=== PATIENT | male | born 1955 | race Caucasian/White ===

== ENCOUNTER 2018-12-17 20:16 | Inpatient (IN) | payer MEDICAID ==
[~2018-12-17] VITALS: Ht 175.3 cm; Wt 73.0 kg
[2018-12-17] MEDS ORDERED: FLOMAX (20:26)
[2018-12-17] MEDS ORDERED: BP MED (20:26)
[2018-12-17] MEDS ORDERED: CHOLESTEROL MED (20:26)
[2018-12-17 20:57] LABS: BASOPHILS 0.1 % (0-2); EOSINOPHILS 1.3 % (0-7); HEMATOCRIT 39.7 % (42.0-54.0); HEMOGLOBIN 13.7 g/dL (13.5-17.5); IMMATURE GRANULOCYTES 0.2 % (0-5); LYMPHOCYTES 14.9 % (15-50); MCH 29.5 pg (26.0-34.0); MCHC 34.5 g/dL (31.0-37.0); MCV 85.6 fL (80.0-100.0); MEAN PLATELET VOLUME 9.7 fL (7.4-10.4); MONOCYTES 7.8 % (2-11); NEUTROPHILS 75.7 % (40-80); PLATELET COUNT 172 10x3/uL (130-400); RBC 4.64 10x6/uL (4.20-6.10); RDW 13.5 % (11.5-14.5); WBC 8.7 10x3/uL (4.8-10.8)
[2018-12-17 21:18] LABS: ALKALINE PHOSPHATASE 78 U/L (46-116); ALT (SGPT) 24 U/L (10-68); BILIRUBIN - TOTAL 0.57 mg/dL (0.2-1.3); CALC OSMOLALITY 302 mosm/kg (275-300); CALCIUM 7.8 mg/dL (8.5-10.1); CARBON DIOXIDE 14.7 mmol/L (21.0-32.0); CHLORIDE - SERUM 110 mmol/L (98-107); CREATININE - SERUM 3.8 mg/dL (0.6-1.3); GLUCOSE 85 mg/dL (74-106); PROTEIN - SERUM 7.8 g/dL (6.4-8.2); SODIUM 143 mmol/L (136-145); UREA NITROGEN 66 mg/dL (7-18); eGFR NON AFRICAN AMERICAN 17 mL/min (90-120)
[2018-12-17 21:30] VITALS: BP 137/79
[2018-12-17 21:36] LABS: LIPASE 82 U/L (73-393); MAGNESIUM - SERUM 2.6 mg/dL (1.8-2.4); THYROID STIMULATING HORMONE 1.29 uIU/mL (0.36-3.74)
[2018-12-17 21:39] LABS: CREATINE KINASE 969 UL (21-232); TROPONIN-I < 0.017 ng/mL (0.000-0.060)
[2018-12-17 21:39] LABS: APPEARANCE SL CLDY (CLEAR); BILIRUBIN NEGATIVE (NEGATIVE); COLOR YELLOW (YELLOW); GLUCOSE NEGATIVE (NEGATIVE); KETONE SMALL mg/dL (NEGATIVE); NITRITE NEGATIVE (NEGATIVE); PROTEIN 2+ mg/dL (NEGATIVE); UROBILINOGEN NORMAL (NORMAL)
[2018-12-17 21:40] LABS: CKMB 16.6 U/L (0.0-3.6)
[2018-12-17 21:41] LABS: RED CELLS - URINE 25-50 /hpf (0-5)
[2018-12-17 21:42] LABS: BACTERIA FEW /hpf (NONE SEEN)
[2018-12-17 21:43] LABS: YEAST <1+ /hpf (NONE SEEN)
[2018-12-17 21:47] LABS: UDS - AMPHET POSITIVE QUAL (NEGATIVE); UDS - BARB NEGATIVE QUAL (NEGATIVE); UDS - BENZO NEGATIVE QUAL (NEGATIVE); UDS - COCAINE NEGATIVE QUAL (NEGATIVE); UDS - OPIATE NEGATIVE QUAL (NEGATIVE); UDS - PCP NEGATIVE QUAL (NEGATIVE); UDS - THC NEGATIVE QUAL (NEGATIVE)
--- NOTE | 2018-12-17 23:31 | NUR ---
PT ARRIVED VIA STRETCHER FROM ER. PT TWITCHING. STATES HE IS LEAVING IN THE MORNING. PT AGREED TO STAY THE NIGHT FOR IV FLUIDS, A BED AND AC. IV TO LAC WITH BANANA BAG AT 125CC/HR AND NS BOLUS. IV TO RAC SL. BED ALRM ON.
[2018-12-17 23:40] VITALS: BP 133/78; BMI 23.8
--- NOTE | 2018-12-18 00:23 | NUR ---
ADMISSION COMPLETED. PT EKUK. SPEECH SLURRED AT TIMES. PT ANSWERED QUESTIONS APPROPRIATELY. UNABLE TO STAY STILL. IV TO TONO EIAUSTIN BANANA BAG AT 125CC/HR. IV TO ERIKA SL. LUNGS CTA. NUMEROUS BUG BITES BOTED TO BODY. PT DOESN'T REMEMBER WHEN HE TOOK HIS MEDS LAST. SR UP X2, CALL LIGHT WITHIN REACH, DOOR OPEN AND BED ALARM ON.
[2018-12-18] MEDS ORDERED: TOPROL XL100 MG PO (00:27)
[2018-12-18] MEDS ORDERED: PRINIVIL20 MG PO (00:27)
[2018-12-18] MEDS ORDERED: ZOCOR20 MG PO (00:27)
[2018-12-18] MEDS ORDERED: FLOMAX0.4 MG PO (00:28)
--- NOTE | 2018-12-18 02:30 | NUR ---
PT PULLED LAC IV OUT. BLOOD NOTED TO PT AND BED. PRESSURE HELD TO AC SITE UNTIL BLEEDING STOPPED. PT CLEANED, BED LINENS CHANGED. IV RESTARTED TO RAC BANANA BAG AT 125CC/HR. PT TWITCHING IN BED. ATIVAN 1MG SIVP GIVEN. SR UP X2, CALL LIGHT WITHIN REACH, DOOR OPEN AND BED ALARM ON.
--- NOTE | 2018-12-18 03:40 | NUR ---
PT RESTING WITH EYES CLOSED. RESP EVEN AND REGULAR. LIGHT TWITCHING NOTED WHILE SLEEPING. SR UP X2, CALL LIGHT WITHIN REACH, DOOR OPEN AND BED ALARM ON.
--- NOTE | 2018-12-18 06:09 | NUR ---
ATIVAN 1MG SIVP GIVEN AT 0542 FOR AGITATION. WILL CONTINUE TO MONITOR.
--- NOTE | 2018-12-18 06:41 | NUR ---
PT PULLED IV TO RAC OUT WITH CATHETER INTACT. INCONTINENT OF URINE. PT CLEANED, BED LINENS CHANGED. NEW IV STARTED #20 TO UPPER R ARM WITH ATTEMPT X2. PT UNCOOPERATIVE DURING PROCEDURE. NS AT 125CC/HR RESTARTED. SR UP X2, CALL LIGHT WITHIN REACH, DOOR OPEN AND BED ALARM ON.
[2018-12-18 06:46] LABS: BASOPHILS 0.1 % (0-2); EOSINOPHILS 0.9 % (0-7); HEMOGLOBIN 12.3 g/dL (13.5-17.5); IMMATURE GRANULOCYTES 0.1 % (0-5); MCH 29.4 pg (26.0-34.0); MCHC 34.2 g/dL (31.0-37.0); MCV 86.1 fL (80.0-100.0); MEAN PLATELET VOLUME 10.1 fL (7.4-10.4); MONOCYTES 11.3 % (2-11); NEUTROPHILS 61.6 % (40-80); PLATELET COUNT 169 10x3/uL (130-400); RBC 4.18 10x6/uL (4.20-6.10); RDW 13.7 % (11.5-14.5)
[2018-12-18 07:09] LABS: ALBUMIN 3.4 g/dL (3.4-5.0); ALKALINE PHOSPHATASE 67 U/L (46-116); ALT (SGPT) 26 U/L (10-68); BILIRUBIN - TOTAL 0.69 mg/dL (0.2-1.3); CALC OSMOLALITY 301 mosm/kg (275-300); CALCIUM 7.6 mg/dL (8.5-10.1); CARBON DIOXIDE 12.8 mmol/L (21.0-32.0); CHLORIDE - SERUM 114 mmol/L (98-107); POTASSIUM - SERUM 4.2 mmol/L (3.5-5.1); PROTEIN - SERUM 6.8 g/dL (6.4-8.2); SODIUM 145 mmol/L (136-145); UREA NITROGEN 55 mg/dL (7-18)
[2018-12-18 07:10] LABS: CREATINE KINASE 924 UL (21-232); CREATININE - SERUM 2.5 mg/dL (0.6-1.3); eGFR NON AFRICAN AMERICAN 28 mL/min (90-120)
[2018-12-18 07:11] LABS: GLUCOSE 69 mg/dL (74-106)
--- NOTE | 2018-12-18 07:15 | NUR ---
REPORT RECEIVED. WILL CONTINUE WITH POC. PT CURRENTLY LYING SEMI FOWLERS. CALL LIGHT W/I REACH. PT IS CURRENTLY RESTING. RR EVEN AND UNLABORED ON RA. NS INFUSING @125ML/HR VIA R.UPPER ARM. PT IS CONFUSED TO SITUATION AND CONTINUES TO TRY AND GET OUT OF BED. FALL PRECAUTIONS IN PLACE.WILL CTM.
[2018-12-18 07:33] LABS: CKMB 18.5 U/L (0.0-3.6)
[2018-12-18 08:55] VITALS: BP 132/51
--- NOTE | 2018-12-18 09:26 | NUR ---
PT PULLED PREVIOUS PIV OUT WITH CATHETER TIP FULLY INTACT. STARTED PIV TO THE LEFT UPPER ARM 22GA X1 ATTEMPT. FLUSHED WITH 10ML NS TO CONFIRM PATENCY. PT TOLERATED WELL. PT IS CONFUSED TO SITUATION AND CONTINUES TO SHAKE AND DRASTICALLY MOVE HIS ARMS. PRN ATIVAN ADMINISTERED. BS THIS AM WAS 69. PT DRANK ONE FULL GLASS OF ORANGE JUICE AND PRN PO GLUCOSE WAS ADMINISTERED. WILL CTM. NS INFUSING @125ML/HR.
[2018-12-18 09:59] VITALS: Ht 175.3 cm; Wt 73.0 kg
--- NOTE | 2018-12-18 10:36 | NUR ---
PT IS CONFUSED AND COMBATIVE AND CONTINUES TO TRY AND GET OUT OF BED. ATTEMPTED TO REORIENT PATIENT AND SAT PT BACK IN BED. BED ALARM TURNED ON. WILL CTM.
--- NOTE | 2018-12-18 13:45 | NUR ---
I have reviewed this patient and I concur with the Shift Assessment completed by the Licensed Practical Nurse today this shift.
--- NOTE | 2018-12-18 14:13 | NUR ---
PT RECEIVED BATH AND NEW LINENS APPLIED. PT CURRENTLY SITTING UP IN CHAIR RESTING. CALL LIGHT W/I REACH. RR EVEN AND UNLABORED ON RA. NS INFUSING @125ML/HR VIA L.UPPER ARM PIV. NO S/S OF DISTRESS NOTED. WILL CTM. PT IS NO LONGER COMBATIVE AND SEEMS TO APPEAR CALM AND COOPERATIVE AT THIS TIME.
--- NOTE | 2018-12-18 18:12 | NUR ---
PT PULLED PREVIOUS PIV OUT IN THE LEFT ARM. INITIATED NEW PIV TO THE RIGHT UPPER ARM 22GA X1 ATTEMPT. PT TOLERATED WELL. FLUSHED WITH 10ML TO CONFIRM PATENCY. BANANA BAG INFUSING @125ML/HR. FALL PRECAUTIONS IN PLACE. CALL LIGHT W/I REACH. SIDE RAIL UP X3. BED ALARM ON. WILL CTM.
[2018-12-18 18:15] VITALS: BP 148/86
[2018-12-18 20:00] VITALS: BP 153/71
--- NOTE | 2018-12-18 21:17 | NUR ---
FOUND PT UP IN OOB WHEN ALARM WENT OFF. PT STATES " I AM TRYING TO USE THE BATHROOM." PROVIDED PT WITH A URINAL. PT PUT OUT 100CC'S. HELPED PT BACK IN BED. BED ALARM ON. PT DENIES ANY FURTHER NEEDS AT THIS TIME. WILL CPOC.
[2018-12-19] VITALS: BP 148/70
[2018-12-19 04:00] VITALS: BP 133/78
[2018-12-19 05:40] LABS: ALBUMIN 3.3 g/dL (3.4-5.0); ANION GAP 19.3 mmol/L (8-16); BILIRUBIN - TOTAL 0.64 mg/dL (0.2-1.3); CALCIUM 7.8 mg/dL (8.5-10.1); CARBON DIOXIDE 15.1 mmol/L (21.0-32.0); MAGNESIUM - SERUM 2.8 mg/dL (1.8-2.4); PHOSPHOROUS 2.9 mg/dL (2.5-4.9); POTASSIUM - SERUM 4.4 mmol/L (3.5-5.1); PROTEIN - SERUM 6.3 g/dL (6.4-8.2)
[2018-12-19 05:51] LABS: CREATININE - SERUM 1.4 mg/dL (0.6-1.3)
--- NOTE | 2018-12-19 06:45 | NUR ---
PT WOKE UP CONFUSED AND AGGITATED AND TRYING TO GET OOB. PT THREW A PUNCH AT ME. STATES HE WANTS HIS URINAL. PROVIDED PT WITH URINAL. PT PUT OUT 70CCS. PT ALSO PULLED OUT HIS IV. NO S/S OF BLEEDING ON SITE. APPLIED 2X2 GAUZE AND TAPED. RESTARTED A NEW IV ON PT'S LEFT WRIST X1 STICK. PT TOLERATE WELL. IV PRN 1MG ATIVAN GIVEN AT THIS TIME. PT DENIES ANY NEED FOR PAIN. WILL CTM. BED ALARM ON.
--- NOTE | 2018-12-19 07:10 | NUR ---
REPORT RECEIVED FROM SOLDERER AND PATIENT CARE ASSUMED. PATIENT LAYING IN BED ON RT SIDE WITH EYES CLOSED AND BREATHING NORMALLY. PATIENT AROUSES TO VOICE.STILL APHASIC. WILL CONTINUE WITH PLAN OF CARE. SIDE RAILS UP X 2 BED IN LOW POSITION AND CALL LIGHT IN REACH.
[2018-12-19 08:52] VITALS: BP 121/67
--- NOTE | 2018-12-19 10:00 | NUR ---
PATIENT HAD COMPLETE BATH AND LINEN CHANGE. UP TO BS CHAIR. PATIENT IS CALM AND AGREEABLE. WILL CONTINUE TO MONITOR. CHAIR ALARM IN PLACE AND WORKING. CALL LIGHT IN REACH.
--- NOTE | 2018-12-19 13:00 | NUR ---
PATIENT BACK TO BED. PATIENT IS CALM AND LETHARGIC. PATIENT IS STABLE AND VSS. WILL CONTINUE TO MONITOR. SR UP X 2 BED IN LOW POSITION AND CALL LIGHT IN REACH.
[2018-12-19 13:56] VITALS: BP 149/86
[2018-12-19 17:39] VITALS: BP 150/93
--- NOTE | 2018-12-19 19:20 | NUR ---
PT COMING BACK FROM BATHROOM. FAMILY ASSISTING. DINNER TRAY NOTED AT BED SIDE. O% EATEN. ASKED PT IF HE WAS HUNGRY AND PT YELLED NO IM NOT EATING. WILL KEEP TRAY FOR IF PT WANTS TO HEAT IT UP. PT SITTING ON SIDE OF BED. DOESNT WANT TO SPEAK TO NURSE AT THIS TIME. NAME AND DATE PLACED ON BOARD. PT BED LOW AND CALL LIGHT IN REACH. WILL CPOC
[2018-12-19 20:00] VITALS: BP 174/90
--- NOTE | 2018-12-19 23:43 | NUR ---
NEW IV PLACED RIGHT AC 20G ONE ATTEMPT. FLUIDS STARTED BACK ORDERED. PT LAYING ON LEFT SIDE. NO S/S OF DISTRESS. WILL CPOC
--- NOTE | 2018-12-20 00:59 | NUR ---
PT FAMILY WENT HOME. PT BED ALARM ON AND ACTIVE. D5 1/2 NS INFUSING AT 100 ORDERED. WILL CPOC
--- NOTE | 2018-12-20 01:57 | NUR ---
PT BED ALARM ALERTED NURSE. PT ASSISTED TO RESTROOM. PT COMPLIANT. NO S/S OF DISTRESS. BACK TO BED AND PLACED ALARM BACK ON. WILL CPOC
[2018-12-20 04:00] VITALS: BP 156/89
[2018-12-20 05:33] LABS: ALBUMIN 2.8 g/dL (3.4-5.0); ALKALINE PHOSPHATASE 55 U/L (46-116); ALT (SGPT) 24 U/L (10-68); BILIRUBIN - TOTAL 0.45 mg/dL (0.2-1.3); CALCIUM 7.7 mg/dL (8.5-10.1); CHLORIDE - SERUM 110 mmol/L (98-107); CREATINE KINASE 196 UL (21-232); SODIUM 141 mmol/L (136-145)
[2018-12-20 05:35] LABS: CALC OSMOLALITY 283 mosm/kg (275-300); GLUCOSE 147 mg/dL (74-106); MAGNESIUM - SERUM 1.6 mg/dL (1.8-2.4); PHOSPHOROUS 1.6 mg/dL (2.5-4.9); UREA NITROGEN 13 mg/dL (7-18); eGFR NON AFRICAN AMERICAN 80 mL/min (90-120)
--- NOTE | 2018-12-20 06:02 | NUR ---
MORNING PROTONIX GIVEN. LOW POTASSIUM, PHOS AND MAG TREATED PER ELECT. PROTOCOL. APPLE SAUCE GIVEN TO PT FOR A SNACK. PT HAS NO S/S OF DISTRESS. WILL CPOC
--- NOTE | 2018-12-20 06:51 | NUR ---
BLADDER SCANED PT DUE TO HISTORY OF BPH NO URINE ON BLADDER SCAN POST VOID
[2018-12-20 08:40] VITALS: BP 141/83
--- NOTE | 2018-12-20 09:09 | NUR ---
PATIENT IS RESTING QUIETLY IN BED AT THIS TIME. DENIES ANY NEEDS.
--- NOTE | 2018-12-20 09:42 | NUR ---
Nutrition follow-up: Attemped to visit pt during breakfast; pt would not speak to me and just turned his head. Diet: Regular PO Intake ~60% average of last 3 meals No BM charted Labs reviewed RDN following.
[2018-12-20 12:27] VITALS: BP 161/97
--- NOTE | 2018-12-20 13:09 | NUR ---
PATIENT IS BEING DISCHARGED. PATIENT EDUCATION COMPLETED AND PAPERS SIGNED. PATIENT IV REMOVED FROM LEFT AC WITH CATHETER INTACT. PATIENT TOLERATED. HE IS GOING HOME WITH FAMILY MEMBER, ALL PATIENT BELONGINGS HAVE BEEN REMOVED FROM THE ROOM. HE IS LEAVING THE FLOOR BY WHEELCHAIR.
--- NOTE | 2018-12-20 14:43 | MORECARE ---
CASE MANAGEMENT DISCHARGE SUMMARY PATIENT: DAYTON SCHROEDER UNIT: [id number] ADM DATE: 12/18/18 AGE: 63 : 57 SEX: M ROOM/BED: D.2104 AUTHOR: CAMILLE LIMA PHYSICIAN: REFERRING PHYSICIAN: OG BOWENS MD DATE OF SERVICE: 12/20/18 Discharge Plan Patient Name: DAYTON SCHROEDER [facility] [facility] 1955 Planned Disposition: Home Anticipated Discharge Date: 12/20/18 Discharge Date: 12/20/2018 Expected LOS: 2 Initial Reviewer: [email or web address] Initial Review Date: 12/20/2018 Generated: 12/20/18 3:42 pm DCPIA - Discharge Planning Initial Assessment Updated by [email or web address]: Ziyad Estrada on 12/20/18 2:36 pm * Is the patient Alert and Oriented? Yes * How many steps to enter\exit or inside your home? * PCP DR. MOTT IN [place] * Pharmacy [facility] IN [place] * Preadmission Environment Home Alone * ADLs Independent * Equipment None * Other Equipment NO MEDICAL EQUIPMENT PROVIDER PREFERENCE * List name and contact numbers for known caregivers / representatives who currently or will assist patient after discharge: MAR SCHROEDER, SISTER, GAVIN SCHROEDER, SISTER, * Verbal permission to speak to the caregivers and representatives has been obtained from the patient. Yes * Community resources currently utilized None * Please name any agencies selected above. NONE * Additional services required to return to the preadmission environment? No * Can the patient safely return to the preadmission environment? Yes * Has this patient been hospitalized within the prior 30 days at any hospital? No Patient Name: DAYTON SCHROEDER Page [id number] at 1443 All edits/amendments must be made on the electronic document DICTATION DATE: 12/20/181441 PRESS OPERATOR CARBON BLOCKS: [place] 12/20/181441 RPT#: [id number] DC DATE:12/20/18 STATUS: DIS IN [facility] [address] [place] [address] END OF REPORT
--- NOTE | 2018-12-20 15:01 | MORECARE ---
CASE MANAGEMENT DISCHARGE SUMMARY PATIENT: DAYTON SCHROEDER UNIT: [id number] ADM DATE: 12/18/18 AGE: 63 : 57 SEX: M ROOM/BED: D.2104 AUTHOR: CLARENCE,DOC PHYSICIAN: REFERRING PHYSICIAN: OG BOWENS MD DATE OF SERVICE: 12/20/18 Discharge Plan Patient Name: DAYTON SCHROEDER Facility: [facility]:[place] : 1955 Planned Disposition: Home Anticipated Discharge Date: 12/20/18 Discharge Date: 12/20/2018 Expected LOS: 2 Initial Reviewer: [email or web address] Initial Review Date: 12/20/2018 Generated: 12/20/18 4:00 pm Comments DCP- Discharge Planning Updated by [email or web address]: Ziyad Estrada on 12/20/18 1:[address] Patient Name: DAYTON SCHROEDER Admission Status: ER Accout number: [id number] Admission Date: 12-18-2018 : 1955 Admission Diagnosis: Attending: OG BOWENS Current LOS: 2 Anticipated DC Date: 12-20-2018 Planned Disposition: Home Primary Insurance: [place] Discharge Planning Comments: CM MET WITH PT IN ROOM TO DISCUSS DISCHARGE PLANNING AND NEEDS. DAYTON SCHROEDER provided verbal consent to discuss current and ongoing needs with/in the presence of: DAUGHTER, MAR SCHROEDER. PT REPORTS LIVING AT HOME INDEPENDENTLY AND ALONE. PT HAS NO MEDICAL EQUIPMENT AND NO OUTSIDE SERVICES ASSISTING IN THE HOME. CM DISCUSSED AVAILABILITY OF HOME HEALTH, REHAB SERVICES AND MEDICAL EQUIPMENT. PT DENIES DISCHARGE NEEDS, REPORTS HIS SISTER IS HERE TO PICK HIM UP FOR DISCHARGE HOME. Ship'S Cook: Ziyad Estrada DCPIA - Discharge Planning Initial Assessment Updated by [email or web address]: Ziyad Estrada on 12/20/18 2:36 pm * Is the patient Alert and Oriented? Yes * How many steps to enter\exit or inside your home? * PCP DR[facility] MOTT IN [place] * Pharmacy [facility] IN [place] * Preadmission Environment Home Alone * ADLs Independent * Equipment None * Other Equipment NO MEDICAL EQUIPMENT PROVIDER PREFERENCE * List name and contact numbers for known caregivers / representatives who currently or will assist patient after discharge: MAR SCHROEDER, SISTER, GAVIN SCHROEDER, SISTER, * Verbal permission to speak to the caregivers and representatives has been obtained from the patient. Yes * Community resources currently utilized None * Please name any agencies selected above. NONE * Additional services required to return to the preadmission environment? No * Can the patient safely return to the preadmission environment? Yes * Has this patient been hospitalized within the prior 30 days at any hospital? No Last DP export: 12/20/18 1:43 p Patient Name: DAYTON SCHROEDER Page [id number] at 1501 All edits/amendments must be made on the electronic document DICTATION DATE: 12/20/18 1500 CRUDE UNIT OPERATOR: CLIFTON 12/20/18 1500 RPT#: [id number] DC DATE:12/20/18 STATUS: DIS IN [facility] [address] [place] [address] END OF REPORT
== END 2018-12-20 13:17 | disposition home or self-care (01) | DRG 92 ==
LOC: D.ER 20:16 → OBSVTIME 22:18 → D.M2 22:18
PROVIDERS: Family Medicine; ADMIT Internal Medicine Nephrology; ATTEND Internal Medicine Nephrology
DX: G92 Toxic encephalopathy (principal); N17.9 Acute kidney failure, unspecified; M62.82 Rhabdomyolysis; T43.625A Adverse effect of amphetamines, initial encounter; F15.929 Other stimulant use, unspecified with intoxication, unspecified; D50.9 Iron deficiency anemia, unspecified